=== PATIENT | female | born 1985 | race Caucasian/White ===

== ENCOUNTER 2018-07-30 13:06 | Emergency (ER) | payer MEDICAID ==
--- NOTE | 2018-07-30 13:55 | ERPHSYRPT ---
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 pts tetanus is not utd. 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) Quality: burning, painful Severity: mild Location: extremities ( right distal forearm) Associated Symptoms: blisters, No difficulty breathing, No edema Allergies/Adverse Reactions: No Known Drug Allergies Allergy (Verified 07/30/18 13:54) - Review of Systems Constitutional: No Symptoms Eyes: No Symptoms Ears, Nose, & Throat: No Symptoms Respiratory: No Symptoms Cardiac: No Symptoms Abdominal/Gastrointestinal: No Symptoms Genitourinary Symptoms: No Symptoms Musculoskeletal: No Symptoms Skin: Other (burn site to right distal forearm) Neurological: No Symptoms Psychological: No Symptoms Endocrine: No Symptoms Hematologic/Lymphatic: No Symptoms Immunological/Allergic: No Symptoms All Other Systems: Reviewed and Negative - Past Medical History Pertinent Past Medical History: Yes Neurological History: No Pertinent History ENT History: No Pertinent History Cardiac History: No Pertinent History Respiratory History: No Pertinent History Endocrine Medical History: No Pertinent History Musculoskeletal History: No Pertinent History GI Medical History: No Pertinent History History: No Pertinent History Psycho-Social History: No Pertinent History Female Reproductive Disorders: No Pertinent History - Past Surgical History Neuro Surgical History: No Pertinent History Cardiac: No Pertinent History Respiratory: No Pertinent History Gastrointestinal: No Pertinent History Genitourinary: No Pertinent History Musculoskeletal: No Pertinent History Female Surgical History: No Pertinent History - Nursing Vital Signs Nursing Vital Signs: Initial Vital Signs Temperature 97.7 F 07/30/18 13:43 Pulse Rate 84 07/30/18 13:43 Blood Pressure 127/87 07/30/18 13:43 O2 Sat by Pulse Oximetry 100 07/30/18 13:43 Pain Scale Pain Intensity 10 - Physical Exam General Appearance: no apparent distress, alert, anxiety Eye Exam: PERRL/EOMI Ears, Nose, Throat Exam: normal ENT inspection, moist mucous membranes Neck Exam: normal inspection, non-tender, supple, full range of motion Respiratory Exam: lungs clear, airway intact, No chest tenderness, No respiratory distress Cardiovascular Exam: regular rate/rhythm Gastrointestinal/Abdomen Exam: No tenderness Pelvic Exam: not done Rectal Exam: not done Back Exam: normal inspection, normal range of motion, No CVA tenderness Extremity Exam: other (right distal forearm second degree burn, axially oriented , oval shaped 3cm x6cm blister.) Neurologic Exam: alert, oriented x 3, cooperative, feeder tender II-XII nml as tested Skin Exam: other (see above) Lymphatic Exam: No adenopathy SpO2 Interpretation: normal O2 Delivery: Room Air Ordered Tests: Medication Summary Discontinued Medications Generic Name Dose Route Start Last Admin Trade Name Freq PRN Reason Stop Dose Admin Diphtheria/Tetanus/Acell Pertussis 0.5 ml 07/30/18 14:10 Adacel Vial IM 07/30/18 14:11 .ONCE ONE Lidocaine HCl 10 ml 07/30/18 14:08 Xylocaine Hcl Viscous * MM 07/30/18 14:09 STAT STA - Progress Progress: unchanged Counseled pt/family regarding: diagnosis, need for follow-up - Departure Departure Disposition: Home Clinical Impression: Second degree burn injury Condition: Stable Critical Care Time: No Additional Instructions: keep dressing in place for 12 hours then change twice daily after washing area with soap and water. cover with silvadene cream and nonstick gauze. follow up with primary doctor for further management. take medications as prescribed. Prescriptions: Hydrocodone/APAP 5-325 Tab^^^ [Fajardo 5-325 Tablet^^^] 1 tab PO Q12H PRN PRN #6 tablet MDD 2 PRN Reason: Pain Cephalexin Mh 500 mg [Keflex 500 mg] 500 mg PO TID #15 capsule Silver Sulfadiazine 50 gm [Silvadene 50 gm] 1 applic TP BID #50 cream.gm.
[2018-07-30] MEDS ORDERED: XYLOCAINE HCl Viscous MM STA (14:08)
[2018-07-30] MEDS ORDERED: Adacel Vial IM ONE ×2 (14:10→16:32)
[2018-07-30] MEDS ORDERED: SILVADENE 50 GM TP ONE ×2 (16:25→16:30)
[2018-07-30 16:51] VITALS: BP 120/82; PULSE 70; O2SAT 99
== END 2018-07-30 16:49 | disposition home or self-care (01) ==
LOC: ED 13:06
DX: T22.211A Burn of second degree of right forearm, initial encounter (principal); X08.8XXA Exposure to other specified smoke, fire and flames, initial encounter; Y93.G2 Activity, grilling and smoking food
CPT/HCPCS: 90471; 90715; 99283; A9270-GY